=== PATIENT | female | born 1950 | race American Indian/Alaskan Native ===

== ENCOUNTER 2018-12-27 15:28 | Outpatient (CLI) | payer MEDICARE ==
--- NOTE | 2018-12-28 08:56 | Ultrasound Report ---
TARGETED RIGHT BREAST ULTRASOUND HISTORY: Mammographic asymmetries at 6:00. COMPARISON: 12/20/2018 mammogram FINDINGS: Sonographic evaluation focused upon the inferior location of the right breast demonstrates an irregularly-shaped benign cyst at 7:00 4 cm from the nipple measuring 5 x 3 x 5 mm and a heterogen eous hypoechoic solid nodule with benign morphology at 7:00 3 cm from the nipple measuring 6 x 6 x 2 mm. Both correlate with the mammographic densities. Both were present on the 11/16/2016 mammogram. IMPRESSION Benign cyst and a benign solid nodule at 7:00. Recommend routine mammographic screening. BIRADS 2: Benign Signer Name: Geraldo Edward MD Signed: 12/27/2018 4:31 PM Workstation Name: [id number]
== END 2018-12-27 15:29 | disposition home or self-care (01) ==
LOC: SPVWC 15:28
PROVIDERS: ATTEND Surgery
DX: N60.01 Solitary cyst of right breast (principal); N63.13 Unspecified lump in the right breast, lower outer quadrant

== ENCOUNTER 2022-01-12 14:49 | Outpatient (CLI) | payer MEDICARE, BC ==
--- NOTE | 2022-01-13 14:59 | Mammography Report ---
DIGITAL SCREENING MAMMOGRAM WITH CAD, 01/12/2022 CLINICAL INFORMATION / INDICATION: Routine screening mammography. TECHNIQUE: Digital bilateral 2D mammography was obtained in the craniocaudal and mediolateral obliqu e projections. This examination was interpreted with the benefit of Computer-Aided Detection analysis . COMPARISON: 01/04/2021, 12/18/2019 FINDINGS: Breast Density: There are scattered areas of fibroglandular density. No dominant mass, suspicious calcifications, or architectural distortion in either breast. Evolving benign-appearing right breast nodularity is noted without other significant interval changes . IMPRESSION: No mammographic evidence of malignancy. Follow up recommendation: Routine yearly screening mammogram. BI-RADS Category 2: BENIGN. A "normal" or negative report should not discourage follow up or biopsy of a clinically significant f inding. A written summary of these findings will be mailed to the patient. The patient will be entered into a mammography reporting system which will generate a reminder letter for the patient's next appointmen t at the appropriate interval. The [employer] recommends yearly mammograms starting at age 40 and continuing as l alanna as a woman is in good health. Breast MRI is recommended for women with an approximate 20-25% or greater lifetime risk of breast cancer, including women with a strong family history of breast or ova chris cancer or who have been treated for Hodgkin's disease. Signer Name: Rashid Joe MD Signed: 01/13/2022 2:55 PM Workstation Name: [id number]
== END 2022-01-12 14:50 | disposition home or self-care (01) ==
LOC: SPVWC 14:49
PROVIDERS: ATTEND Internal Medicine
DX: Z12.31 Encounter for screening mammogram for malignant neoplasm of breast (principal)
CPT/HCPCS: 77067